=== PATIENT | female | born 1935 | race Caucasian/White ===

== ENCOUNTER → 2017-10-12 10:09 | Outpatient (CLI) | payer MEDICARE, OTHER, SELFPAY ==
--- NOTE | 2017-10-12 | DI.US.S_ITS ---
PROCEDURE: US THYROID INDICATIONS: LEFT THYROID NODULE TECHNIQUE: Real-time scanning was performed of the thyroid gland, with image documentation. COMPARISON: [facility], , US THYROID, 02/02/2016, 11:06. FINDINGS: Right: Thyroid lobe measures 3.0 x 1.2 x 1.4 cm, and is multicystic and heterogeneous in echotexture. Left: Thyroid lobe measures 3.7 x 1.2 x 1.3 cm, and is multicystic and heterogeneous in echotexture. Isthmus: 3.0 mm thick. There is a midline fluid collection with wall irregularity superior to the thyroid measuring 1.3 x 0.9 x 0.8 cm. Nodule number: 1 Location: Left mid Size: 0.7 x 0.5 x 0.5 cm. Composition: Cystic Echogenicity: Hypoechoic Shape: wider than tall. Margins: Smooth Echogenic foci: None Total points: 2 ACR TI-RADS category: No suspicious IMPRESSION: 1. Diffusely heterogeneous and multicystic appearance of the thyroid gland and roughly 7 mm left thyroid nodule which is not suspicious. 2. 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 If indicated CT could be performed for further assessment. ACR TI-RADS definitions and recommendations: TI-RADS 1 (benign): 0 points. FNA not needed. TI-RADS 2 (not suspicious): 2 points. FNA not needed. TI-RADS 3 (mildly suspicious): 3 points. * FNA if 2.5 cm or larger, follow up if 1.5 cm or larger (at 1, 3, and 5 years). TI-RADS 4 (moderately suspicious): 4-6 points. * FNA if 1.5 cm or larger, follow up if 1 cm or larger (at 1, 2, 3, and 5 years). TI-RADS 5 (highly suspicious): 7 points or more. * FNA if 1 cm or larger, follow up if 0.5 cm or larger (every year for 5 years). Dictated by: Cohlo FLOREZ Interpreted: Ashanti Olmstead MD on 10/12/2017 at 11:31 Approved by: Ashanti Olmstead M.D. on 10/12/2017 at 17:34
== END ==
PROVIDERS: Visit Provider Physician Assistant Medical
DX: E04.1 Nontoxic single thyroid nodule (principal)
CPT/HCPCS: 76536